=== PATIENT | female | born 1980 | race Caucasian/White ===

== ENCOUNTER 2019-05-28 05:10 | Inpatient (IN) | payer OTHER, SELFPAY ==
--- NOTE | 2019-05-25 13:29 | PCM.HP.OB ---
History Date of Admission: 05/28/19 Final RAMA: 06/01/19 Final RAMA Source: US <20 weeks Gestational age: 39 Weeks and 0 Days History of this : This is a 38 year-old, at 39-3/7 weeks gestation on 05/28/2019 presents for repeat section. Her has been complicated to date by advanced maternal age. She has a history of a primary section for a 9lb 2oz infant being breech with her last . At the time of this preop appointment, she not had any vaginal bleeding leaking of fluid or significant contractions. her past medical history significant for depression. Allergies No Known Allergies Allergy (Verified 10/24/16 06:43) Home Medications: Home Medications Vits [Prenatabs FA ] 1 tablet PO DAILY 10/23/16 Ibuprofen [Motrin] 800 mg PO TID PRN PRN #60 tablet 10/25/16 Oxycodone HCl/Acetaminophen [Percocet 5/325] 1 - 2 tablet PO Q4H PRN PRN #30 tablet 10/25/16 SimETHICONE [Mylicon] 80 mg PO PCHS PRN #30 tablet 10/25/16 Smoking Status: Never smoker Alcohol: None Number of Fetus(es): 1 History Past Pregnancies: Past Pregnancies Delivery Date Name GA/Weeks Outcome Route Weight Infant Gender Labor Length Anesthesia Delivery Location Provider FOB Expected Delivery Method: Spontaneous Vaginal Review of Systems Constitutional: Denies: Anorexia, Chills, Fever Eyes: Denies: Blurred vision Cardiovascular: Denies: Chest Pain, Edema Respiratory: Reports: Cough. Denies: Shortness of Breath, Shortness of breath at rest Gastrointestinal: Denies: Constipation, Vomiting Genitourinary: Denies: Dysuria Neurological: Denies: Change in Speech Hematologic/ Lymphatic: Denies: Anemia, Hx of blood clot, Hx of blood transfusion Physical Exam General: Alert, Cooperative, No apparent distress Cardiovascular: Regular rate, Regular Rhythm Lungs: Clear to auscultation, Normal air movement Abdomen: Soft, Non Tender, Non-Distended, Gravid, Appropriate for Gestational Age Extremities:: No edema Neurological: Cranial nerves II-XII grossly intact Estimated gestational size: Appropriate for gestational size Presentation: Cephalic Assessment/Plan This is a 38 year-old, at 39-3/7 weeks gestation on 05/28/2019 scheduled day of repeat section. Risks benefits and alternatives to repeat section have been discussed with the patient, her questions were answered her satisfaction she desires to proceed. consent was signed.
[2019-05-28] VITALS (19 sets, daily range): BP systolic 101–123; BP diastolic 53–81; PULSE 73–93; RESP 14–18; TEMP 36.6–37.3; O2SAT 93–97; BMI 24.9
[2019-05-28 05:55] LABS: Absolute Lymphocyte Count 1.34 X10^3/uL (0.83-4.51); Absolute Neutrophil Count 6.9 X10^3/uL (2.0-7.7); Basophil# 0.05 X10^3/uL; Basophil% 0.5 % (0-1); Eosinophil# 0.16 X10^3/uL; Eosinophils% 1.7 % (0-5); Hematocrit 37.2 % (37-47); Hemoglobin 12.5 g/dL (12.0-15.0); Lymphocyte # 1.34 X10^3/ul (4.0); Lymphocyte % 14.4 % (19-41); Mean Corp Hgb Conc 33.6 g/dL (32-36); Mean Corpuscular Hgb 32.1 pg (27.0-32.0); Mean Corpuscular Volume 95.6 fL (81-99); Monocyte# 0.85 X10^3/uL; Monocyte% 9.1 % (0-10); NRBC Flagged by Analyzer 0 % (0-5); Neutrophil # 6.86 X10^3/uL (2.7-7.7); Neutrophil % 73.8 % (47-70); Platelet Count 152 K/mm3 (150-450); RBC Distribution Width CV 13.2 % (11.6-14.6); RBC Distribution Width SD 46.5 fl (35.1-43.9); Red Blood Count 3.89 M/mm3 (4.2-5.4); White Blood Count 9.3 K/mm3 (4.4-11.0)
[2019-05-28] MEDS: Lactated Ringers 1,000 ML 999 ML IV (06:01)
[2019-05-28] MEDS: Sodium Citrate/Citric Acid 30 ML UDC PO (06:59)
[2019-05-28] MEDS: Lactated Ringers 1,000 ML 150 ML IV (07:00)
[2019-05-28] MEDS: Cefazolin 2 GM in 0.9% Normal Saline 100 ML IV (07:35)
[2019-05-28] MEDS: Oxytocin 30 units/NS 500 ml 30 UNITS/500 ML IV.SOLN 167 UNITS IV (07:50)
--- NOTE | 2019-05-28 08:08 | PCM.OPRPT ---
Delivery Classification: Scheduled Final RAMA: 06/01/19 Final RAMA Source: US <20 weeks Gestational age: 39 Weeks and 3 Days Indications for : Repeat Elective Description of Procedure: The patient was taken to the operating room. She was prepped and draped in the dorsal supine position with a leftward tilt. A Pfannenstiel skin incision was made approximately 2 cm above the symphysis pubis and carried through to underlying layer fascia with the scalpel. The fascia was incised incised in the midline and extended laterally with the Walden scissors. The fascia was dissected off the rectus muscles with blunt and sharp dissection. The rectus muscles were in the midline and the peritoneum was entered bluntly. The peritoneal incision was stretched and the bladder blade was placed. There were no significant intraperitoneal adhesions. The uterine incision was made in a low transverse fashion with the scalpel and extended superiorly and inferiorly with blunt dissection. The amniotic membranes were ruptured bluntly and clear amniotic fluid returned. The 's head was brought to the incision in the flexed position and delivered without difficulty. The remainder of the infant was delivered with gentle traction and fundal pressure in the standard fashion. The mouth and nares were bulb suctioned. The cord was clamped and cut as the infant was stimulated. Cord clamping was delayed. The infant was handed off to the waiting nursing staff. The placenta was delivered with fundal massage and gentle traction in the standard fashion. The uterus was exteriorized and cleared of all clots and debris. The cervix was dilated with a ring forcep. The uterine incision was closed with #1 Vicryl in a running locked fashion. A second layer of the same suture was used in an imbricating fashion. The incision was examined and was found to be hemostatic. The uterus was placed back into the peritoneal cavity and hemostasis was again confirmed. The rectus muscles were examined and any bleeding was Bovie cauterized. The parietal peritoneum and rectus muscles were closed en bloc with an 0 Vicryl running suture. The surgical teams outer gloves were then changed. The rectus fascia was examined and any bleeding was Bovie cauterized and the rectus fascia was closed with 1 Vicryl suture in a running standard fashion. The subcutaneous tissue was examining and any bleeding was Bovie cauterized. The subcutaneous tissue was reapproximated with 3-0 Vicryl suture. The skin was closed in a subcuticular fashion by the HUMANITIES DIVISION CHAIR with me present in the labor and delivery suite. I performed the remainder of the procedure with assistance. All sponge, lap, and needle counts were correct. The patient was taken to her room for recovery in a stable condition. Amniotic Membrane Rupture Type: Artificial Amniotic Fluid Description: Clear Placenta Disposition: [facility] Drain: Allen to straight drain Fluids Replaced: 1000 Cord Entanglement: None Cord Vessel Description: 3 Vessels Esitmated Blood Loss (ml): 800 Gender: Male (1 minute): 8 (5 minute): 9 Delayed cord clamping: Yes Pre-op Antibiotic Given: Ancef 2 grams IV x1 Complications: None - Admit VTE Documentation VTE Present on Admission: Yes VTE Mechan Device Prophylaxis: SCD's VTE Pharm Prophylaxis ordered?: Yes
[2019-05-28] MEDS: Acetaminophen 500 MG Tablet 1000 MG PO ×2 (09:28→20:54)
[2019-05-28] MEDS: Lactated Ringers 1,000 ML 100 ML IV (13:00)
[2019-05-28] MEDS: Ketorolac 30 MG/ML Syringe IV ×2 (14:32→20:09)
[2019-05-28] MEDS: Senna/Docusate Sodium 1 Tablet PO (20:12)
[2019-05-29] VITALS (7 sets, daily range): BP systolic 105–124; BP diastolic 67–73; PULSE 80–101; RESP 16–18; TEMP 36.3–36.9; O2SAT 94–100
[2019-05-29] MEDS: Ketorolac 30 MG/ML Syringe IV ×4 (00:33→19:24)
[2019-05-29] MEDS: 0.9% Saline Lock 10 ML Syringe IV ×4 (00:33→19:25)
[2019-05-29] MEDS: Enoxaparin 40 MG/0.4 ML Syringe SC (06:16)
[2019-05-29 06:31] LABS: Hematocrit 34.4 % (37-47); Hemoglobin 11.4 g/dL (12.0-15.0); Mean Corp Hgb Conc 33.1 g/dL (32-36); Mean Corpuscular Hgb 32.7 pg (27.0-32.0); Mean Corpuscular Volume 98.6 fL (81-99); Mean Platelet Vol. 8.7 fl (6.2-12.0); Platelet Count 149 K/mm3 (150-450); RBC Distribution Width CV 13.5 % (11.6-14.6); Red Blood Count 3.49 M/mm3 (4.2-5.4)
--- NOTE | 2019-05-29 09:13 | PCM.PN.OB ---
Subjective: Patient reports that her URI symptoms are improving. She has some coughing at times that causes incisional pain. - Physical Exam General: Alert, Oriented x3 Abdomen: Soft, Non Tender, Non-Distended - ff mid & below umb; inc - bandage c/d/i Extremities: No Calf Tenderness Vital Signs Temp Pulse Resp BP Pulse Ox 98.0 F 83 16 112/73 96 05/29/19 08:25 05/29/19 08:25 05/29/19 08:25 05/29/19 08:25 05/29/19 08:25 Oxygen Delivery Method Room Air Weight: 164 lb Body Mass Index (BMI) 24.9 Intake and Output for Last 24 Hours 05/27/19 05/28/19 05/29/19 23:59 23:59 23:59 Intake Total 2226 / 2226 Output Total 4850 / 4850 650 / 650 Balance -2624 / -2624 -650 / -650 Laboratory Tests Past 24 Hrs 05/29/19 06:20 WBC 12.0 H RBC 3.49 L Hgb 11.4 L Hct 34.4 L MCV 98.6 MCH 32.7 H MCHC 33.1 RDW Std Deviation 48.0 H RDW Coeff of Tonio 13.5 Plt Count 149 L MPV 8.7 Medical Necessity - Tobacco Use Smoking Status: Never smoker Assessment/Plan POD#1 Heme - cbc reviewed. ID - AF, not signs infection. Patient with resolving URI. GI - ADAT. - adequate UOP. Routine care.
[2019-05-29] MEDS: Senna/Docusate Sodium 1 Tablet PO ×2 (09:51→22:04)
--- NOTE | 2019-05-29 12:00 | CASEMGMT ---
Social Work Referral Date: 05/29/19 Date of Assessment: 05/29/19 Reason for Consult: Mother of baby (MOB) with history of depression. Informant: Nursing staff Personal Status Mentation: MOB A&Ox3 Present during assessment: MOB, infant and Father of baby (FOB). Hx : 5 Hx Para: 1 Infant Gender: Male Name: MOB stating to still be working on picking out a name for this . 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 Pina age 2 1/2 is now older sister to this . Custody Comments: MOB/FOB have custody of all children Living Arrangements: MOB, FOB, Pina and now this infant live in a private home together. Education: Collage Degree Employment: [employer], works in the [employer] department Family Dynamics/Relationships: MOB/FOB reporting positive relationship dynamics. Supports: MOB/FOB identifying family as support. FOB also works from home and is able to assist as needed. Transportation: No concerns identified Substance Abuse Hx and Current Pattern of Use MOB/FOB deny any substance abuse history. Mental Health Hx and Current Status MOB reporting a history of seasonal affective disorder. MOB stating to manage mood by light box therapy and walks. MOB reporting to have never had any medication to manage mental health. MOB does identify a history of counseling, but no current counseling. MOB stating that MOB's mother has significant depression and MOB wants to continue to be proactive about manage mental health. MOB denies history of suicidal thoughts. Items/Skills List for Infants Care Supplies: MOB stating to have all needed supplies (crib, car seat, bassinet, clothing, diapers etc.) Bonding With Infant: MOB reporting to have a connection with . Observed Maternal/Paternal Child interaction: MOB holding during assessment. MOB supporting infant appropriately. MOB gazing towards infant often during assessment. Emotional Assessment: MOB presenting with a positive affect during assessment. MOB engaged in conversation with this social service manager and asked several questions about manage mental health. Control: Did no assess Resources JFS: N/A WIC: N/A People to People: N/A Community Action: N/A Help Me Grow: No referral. Children Protective Services Hx: Intervention: Social Work assessment. Resources for safe sleeping, depression, shaken baby, and [facility] resource guide provided. Assessment Met with MOB and FOB in room. MOB's main concerns is maintaining a healthy mental health. MOB confiding in this social service manager that MOB's mother has a history of depression and that it took 10 years for MOB's mother to get help. MOB identifying positive coping skills to manage depression such as walking and light box therapy. MOB reporting to have positive support and that things have been going well (MOB referring to Mental Health). MOB denying any need/interest for counseling at this time. MOB aware to contact primary care physician if MOB sees a change in mood or having suicidal thoughts. MOB reporting to be excited about having infant in life. MOB hopeful that will do well and hopes that infant will sleep train well as did other . This social service manager educating MOB that each has a different personality and that this may have a different development story (i.e. when infants starts to sleep through the night) then first child. This social service manager encouraging MOB to take each day, one at a time and to learn about this infants personality. Nursing staff aware of social work assessment. Plan: This to discharge to home with JEROME, CARLINE and Elina. Aparna Johnson MSW, RAMOS
[2019-05-29] MEDS: oxyCODONE 5 MG Tablet PO (16:43)
[2019-05-30] MEDS: 0.9% Saline Lock 10 ML Syringe IV ×2 (00:42→06:19)
[2019-05-30] MEDS: Ketorolac 30 MG/ML Syringe IV ×2 (00:42→06:19)
[2019-05-30 00:50] VITALS: BP 114/74; PULSE 80; RESP 16; TEMP 36.8; O2SAT 95
[2019-05-30] MEDS: Acetaminophen 500 MG Tablet 1000 MG PO ×2 (03:56→14:56)
[2019-05-30] MEDS: Enoxaparin 40 MG/0.4 ML Syringe SC (06:41)
--- NOTE | 2019-05-30 06:46 | NURSING ---
Pt. has had c/o of throbbing headache on and off throughout the night. Tylenol and toradol have been given to help. Pt. states that resting and sleeping has helped, but that laying down is the only thing that really helps the headache.
[2019-05-30 08:10] VITALS: BP 124/78; PULSE 81; RESP 18; TEMP 36.6; O2SAT 95
--- NOTE | 2019-05-30 08:56 | DCINST_ITS ---
Discharge Diet: No Restrictions Discharge Activity: May not drive while taking narcotic pain medications., May Shower May resume sexual activity in: 6 weeks Weight Bearing Status: Weight bearing as tolerated Call your doctor if your incision/area has: Continuous Slow Oozing, Sudden Increased Bleeding, Increased Pain/ Swelling, Increased Redness, Foul Smelling Discharge, Swelling at the incision site Additional Instructions: If you experience any of the following, contact your healthcare provider. * Bleeding that soaks a pad every hour for 2 hours * Fever 100.4 or higher * Unrelieved incision or abdominal pain * Swelling, redness, discharge or bleeding from your incision or episiotomy site * Your incision begins to separate * Problems urinating (including inability to urinate or burning while urinating). * Visual changes * Severe headache * Flu-like symptoms * Pain or redness in one of both of your breasts * Pain, warmth, tenderness or swelling in your legs, especially the calf area * Frequent nausea and vomiting * Symptoms of depression or anxiety If you experience any of the following, call 911 or go to the nearest Emergency Room. * Chest pain * Problems breathing * Seizure activity * Partial or complete paralysis of a body part, slurred speech, weakness or drooping of the face, or a sudden inability to walk or hold your balance Allergies/Adverse Reactions: Allergies No Known Allergies Allergy (Verified 05/28/19 06:04) Medications to take at Discharge Vits [Prenatabs FA ] 1 tablet PO DAILY 10/23/16 Guaifenesin Dm [Robitussin Dm] 5 ml PO Q6H PRN PRN 05/28/19 Acetaminophen [Tylenol] 1,000 mg PO Q8H PRN tablet 05/30/19 Naproxen [Naprosyn] 250 - 500 mg PO Q8H PRN PRN tablet 05/30/19 Oxycodone [Oxyir] 5 mg PO Q6H PRN PRN 2 Days #5 tab 05/30/19 The following prescriptions were given: Oxycodone [Oxyir] 5 mg PO Q6H PRN PRN 2 Days #5 tab PRN Reason: Mod-Severe Pain (4-10/10) Prescription Printed Follow-Up: Call to make an appointment with your doctor for an incision check in 1-2 weeks. You will also need a 6 week post- follow up appointment. Test results from this visit will be discussed in further detail at your follow- up appointment, if applicable. Primary Care Physician: Care Physician,No Primary [Primary Care Provider] -
--- NOTE | 2019-05-30 08:58 | PCM.PN.OB ---
Subjective: Patient reports a mild headache. She states she had a headache last night that resolved with tylenol & sleep. This morning when she sat up it returned. It's throbbing but tolerable. Denies blurry vision or other symptoms. - Physical Exam General: Alert, Oriented x3 Abdomen: Soft, Non Tender, Non-Distended - ff mid & below umb; inc - bandage c/d/i Extremities: No Calf Tenderness Vital Signs Temp Pulse Resp BP Pulse Ox 97.8 F 81 18 124/78 H 95 05/30/19 08:10 05/30/19 08:10 05/30/19 08:10 05/30/19 08:10 05/30/19 08:10 Oxygen Delivery Method Room Air Weight: 164 lb Body Mass Index (BMI) 24.9 Intake and Output for Last 24 Hours 05/28/19 05/29/19 05/30/19 23:59 23:59 23:59 Intake Total 2226 / 2226 Output Total 4850 / 4850 650 / 650 Balance -2624 / -2624 -650 / -650 Medical Necessity - Tobacco Use Smoking Status: Never smoker Assessment/Plan PPD#2 Headache - possible spinal headache & patient evaluated by anesthesia. Encouraged caffeinated beverages, hydration, & tylenol. Reviewed headache precautions. BP's normal & no evidence preeclampsia. Possible discharge home later today per patient request.
[2019-05-30] MEDS: Caffeine 200 MG Tablet PO (09:59)
[2019-05-30] MEDS: Senna/Docusate Sodium 1 Tablet PO (11:09)
[2019-05-30] MEDS: Naproxen 250 MG Tablet PO (12:20)
[2019-05-30 15:05] VITALS: BP 124/79; PULSE 90; RESP 20; TEMP 37.1
== END 2019-05-30 15:05 | disposition home or self-care (01) | DRG 788 ==
PROVIDERS: Admitting Provider Obstetrics & Gynecology; Referring Provider Obstetrics & Gynecology; Visit Provider Obstetrics & Gynecology
PROC: 10D00Z1 Extraction of Products of Conception, Low, Open Approach (ICD-10-PCS; CPT 59514; principal; 2019-05-28 07:15)
DX: O65.5 Obstructed labor due to abnormality of maternal pelvic organs (principal); O34.211 Maternal care for low transverse scar from previous cesarean delivery; Z3A.39 39 weeks gestation of pregnancy; Z37.0 Single live birth; O99.52 Diseases of the respiratory system complicating childbirth; J06.9 Acute upper respiratory infection, unspecified; G97.1 Other reaction to spinal and lumbar puncture; Y84.4 Aspiration of fluid as the cause of abnormal reaction of the patient, or of later complication, without mention of misadventure at the time of the procedure; Y92.239 Unspecified place in hospital as the place of occurrence of the external cause
CPT/HCPCS: 85025; 85027; 86850; 86900; 99218; J7120; A4216; G0378; J2405